=== PATIENT | female | born 1985 | race African-American/Black ===

== ENCOUNTER 2017-02-16 15:42 | Inpatient (IN) | payer MEDICAID ==
[~2017-02-16] VITALS: Ht 157.5 cm; Wt 74.8 kg
[~2017-02-16 15:42] MED LIST: FERR-43 PO; PRENATAL VITAMINS
[2017-02-16] MEDS ORDERED: IBUPROFEN 800MG TABLET PO ONE (21:30)
[2017-02-16] MEDS ORDERED: HYDROCODONE/ACETAMINOPHEN 5/325MG TABLET PO ONE (21:30)
[2017-02-16] MEDS ORDERED: SODIUM CHLORIDE 0.9% 1,000 ML IV ONE (23:39)
[2017-02-16] MEDS ORDERED: ONDANSETRON HCL 4MG/2ML VIAL IV STA (23:39)
[2017-02-16] MEDS ORDERED: MORPHINE SULFATE 4 MG/ML CPJ (NOT FOR IM USE) IV STA (23:39)
[2017-02-17] MEDS ORDERED: MORPHINE SULFATE 4 MG/ML CPJ (NOT FOR IM USE) IV STA (00:04)
[2017-02-17] MEDS ORDERED: ETOMIDATE 2MG/ML 10ML VIAL IV ONE ×2 (00:15→01:30)
[2017-02-17 00:47] LABS: BASOPHILS % 0.6 % (0.0-2.0); EOSINOPHILS % 1.4 % (0.0-5.0); HEMOGLOBIN. 13.4 g/dL (12.0-16.0); LYMPHOCYTES % 16.1 % (20.0-50.0); MEAN CORPUSCULAR HEMOGLOBIN 29.8 pg (28.0-32.0); MEAN CORPUSCULAR VOLUME 90.8 fL (81.0-99.0); MEAN PLATELET VOLUME 9.3 fl (7.4-10.4); MONOCYTES % 4.8 % (2.0-8.0); NEUTROPHILS % 77.1 % (40.0-76.0); PLATELET 210 x1000/uL (130-400); RED BLOOD CELL COUNT 4.52 mill/uL (4.2-5.4); RED CELL DISTRIBUTION WIDTH 13.1 % (11.6-14.6)
[2017-02-17 00:56] LABS: CHLORIDE 106 mEq/L (98-107)
[2017-02-17 00:57] LABS: HCG SCREEN NEGATIVE
[2017-02-17 00:58] LABS: PARTIAL THROMBOPLASTIN TIME 23.6 sec (23.4-31.0); PROTHROMBIN TIME 10.3 sec (9.4-11.6)
[2017-02-17 01:04] LABS: CARBON DIOXIDE 26 mEq/L (21-32)
[2017-02-17] MEDS ORDERED: MORPHINE SULFATE 2 MG/ML CPJ (NOT FOR IM USE) IV ONE (04:15)
[2017-02-17] MEDS ORDERED: ONDANSETRON HCL 4MG/2ML VIAL IV ONE (04:15)
[2017-02-17 08:20] VITALS: BP 145/91
[2017-02-17] MEDS ORDERED: ONDANSETRON HCL 4MG/2ML VIAL IV PRN (09:45)
[2017-02-17] MEDS ORDERED: DIPHENHYDRAMINE 50MG/ML VIAL IV PRN (09:45)
[2017-02-17] MEDS ORDERED: ACETAMINOPHEN 650MG SUPP PR PRN (09:45)
[2017-02-17] MEDS ORDERED: IPRATROPIUM/ALBUTEROL 0.5-3(2.5)MG/3ML NEB INH PRN (09:45)
[2017-02-17] MEDS ORDERED: DOCUSATE SODIUM 100MG CAPSULE PO PRN (09:45)
[2017-02-17] MEDS ORDERED: ACETAMINOPHEN 650MG/20.3ML UDC GT PRN (09:45)
[2017-02-17] MEDS ORDERED: MAGNESIUM/ALUMINUM HYDROXIDE/SIMETHICONE 30ML UDC PO PRN (09:45)
[2017-02-17] MEDS ORDERED: GUAIFENESIN 200MG/10ML SUGAR FREE UDC PO PRN (09:45)
[2017-02-17] MEDS ORDERED: CLONIDINE 0.1MG TABLET PO PRN (09:45)
[2017-02-17] MEDS ORDERED: NA PHOS,M-B/NA PHOS,DI-BA ENEMA 118ML PR PRN (09:45)
[2017-02-17] MEDS ORDERED: HYDROCODONE/ACETAMINOPHEN 5/325MG TABLET PO PRN (09:45)
[2017-02-17] MEDS ORDERED: LORAZEPAM 0.5MG TABLET PO PRN (09:45)
[2017-02-17] MEDS ORDERED: HYDROCODONE/APAP 7.5/325MG 1 TAB TABLET PO PRN ×2 (09:45)
[2017-02-17] MEDS: MORPHINE SULFATE 4 MG/ML CPJ (NOT FOR IM USE) IV PRN ×2 (10:21→16:01)
[2017-02-17] MEDS: ENOXAPARIN 40MG/0.4ML SYR SUBCUT SCH (10:34)
[2017-02-17 11:57] VITALS: BP 145/91
[2017-02-17 12:00] VITALS: BP 148/93
[2017-02-17] MEDS: ACETAMINOPHEN 325MG TABLET PO PRN ×2 (12:16→19:16)
[2017-02-17 13:20] LABS: CLARITY URINE CLEAR (CLEAR); COLOR URINE YELLOW (YELLOW); KETONES URINE NEGATIVE (NEGATIVE); LEUKOCYTE ESTERASE URINE NEGATIVE (NEGATIVE); NITRITE URINE NEGATIVE (NEGATIVE); OCCULT BLOOD URINE NEGATIVE (NEGATIVE); PH URINE 6.5 (4.5-8.0); PROTEIN URINE NEGATIVE (NEGATIVE); SPECIFIC GRAVITY URINE 1.011 (1.005-1.030); UROBILINOGEN URINE 0.2 E.U./dL (0.2-1.0)
[2017-02-17 14:13] LABS: *AMPHETAMINES SCREEN URINE NEGATIVE (NEGATIVE); *BARBITURATES SCREEN URINE NEGATIVE (NEGATIVE); *BENZODIAZEPINES SCREEN URINE NEGATIVE (NEGATIVE); *COCAINE SCREEN URINE NEGATIVE (NEGATIVE); METHADONE URINE SCREEN NEGATIVE (NEGATIVE); PHENCYCLIDINE URINE SCREEN NEGATIVE (NEGATIVE)
[2017-02-17 14:26] LABS: CANNABINOID URINE SCREEN PRESUMTIVE POSITIVE (NEGATIVE); OPIATES URINE SCREEN PRESUMTIVE POSITIVE (NEGATIVE)
[2017-02-17 16:00] VITALS: BP 127/82
[2017-02-17 20:00] VITALS: BP 131/88
[2017-02-17] MEDS: SODIUM CHLORIDE 0.9% INJ 3ML FLUSH IVF SCH (23:49)
[2017-02-18] VITALS: BP 126/84
[2017-02-18] MEDS: MORPHINE SULFATE 4 MG/ML CPJ (NOT FOR IM USE) IV PRN ×2 (00:36→05:53)
[2017-02-18 04:00] VITALS: BP 139/86
[2017-02-18] MEDS: SODIUM CHLORIDE 0.9% INJ 3ML FLUSH IVF SCH (05:53)
[2017-02-18 06:30] LABS: BASOPHILS % 0.6 % (0.0-2.0); EOSINOPHILS % 2.7 % (0.0-5.0); HEMATOCRIT. 39.6 % (36.0-48.0); LYMPHOCYTES % 27.9 % (20.0-50.0); MEAN CORPUSCULAR HEMOGLOBIN 29.8 pg (28.0-32.0); MEAN CORPUSCULAR VOLUME 90.9 fL (81.0-99.0); MEAN PLATELET VOLUME 9.3 fl (7.4-10.4); MONOCYTES % 8.1 % (2.0-8.0); NEUTROPHILS % 60.7 % (40.0-76.0); PLATELET 191 x1000/uL (130-400); RED BLOOD CELL COUNT 4.35 mill/uL (4.2-5.4); RED CELL DISTRIBUTION WIDTH 12.7 % (11.6-14.6)
[2017-02-18 07:55] LABS: CHLORIDE 105 mEq/L (98-107)
[2017-02-18 08:00] VITALS: BP 112/79
[2017-02-18 08:03] LABS: CARBON DIOXIDE 27 mEq/L (21-32); HDL CHOLESTEROL 42 mg/dL (40-59); LDL CHOLESTEROL 82 mg/dL (5-100)
[2017-02-18] MEDS: ENOXAPARIN 40MG/0.4ML SYR SUBCUT SCH (09:12)
[2017-02-18 11:30] VITALS: BP 112/79
[2017-02-18 12:00] VITALS: BP 120/90
== END 2017-02-18 13:00 | disposition home or self-care (01) | DRG 342 ==
LOC: ER 15:42 → 6EST 02-17 01:34 → ENRESERV 02-17 07:34
PROVIDERS: ADMIT Family Medicine; ATTEND Family Medicine
PROC: 0RSMXZZ Reposition Left Elbow Joint, External Approach (ICD-10-PCS; principal; 2017-02-17)
DX: S53.195A Other dislocation of left ulnohumeral joint, initial encounter (principal); I10 Essential (primary) hypertension; F12.90 Cannabis use, unspecified, uncomplicated; H91.90 Unspecified hearing loss, unspecified ear; W18.39XA Other fall on same level, initial encounter; Y93.89 Activity, other specified; Y92.89 Other specified places as the place of occurrence of the external cause; Z79.899 Other long term (current) drug therapy; Y99.8 Other external cause status
CPT/HCPCS: 24600; 36415; 71045; 73070; 73110; 80053; 80061; 80305; 81003; 84703; 85025; 85610; 85730; 86850; 86900; 93005; 96361; 96374; 96375; 96376; 99285; A4565; J1650; J2270; J2405; J3490; J7030